=== PATIENT | male | born 1970 | race Caucasian/White ===

== ENCOUNTER 2023-09-19 15:17 | Inpatient (IN) | payer SELFPAY ==
[~2023-09-19] VITALS: Ht 182.9 cm; Wt 95.8 kg
[2023-09-19] MEDS ORDERED: LR 1,000 ML IV ONE (16:30)
[2023-09-19 17:12] LABS: BASO # 0.1 K/mm3 (0.0-0.2); BASO % 0.9 % (0.0-2.0); EOS # 0.1 K/mm3 (0.0-0.7); EOS % 0.8 % (0.0-4.0); GRAN # 6.8 K/mm3 (1.4-6.5); GRAN % 80.7 % (42.2-75.2); HEMATOCRIT 43.4 % (42.0-52.0); HEMOGLOBIN 14.9 g/dl (13.5-18.0); LYMPH # 1.1 K/mm3 (1.2-3.4); MEAN CELL VOLUME 91 fl (80.0-100.0); MEAN CORPUSCULAR HEMOGLOBIN 31 pg (27-31); MEAN CORPUSCULAR HGB CONC 34 g/dl (33.0-37.0); MEAN PLATELET VOLUME 10.2 fl (7.4-10.4); MONO # 0.4 K/mm3 (0.1-0.6); MONO % 4.4 % (1.7-9.3); PLATELET COUNT 227 K/mm3 (130-400); RED BLOOD COUNT 4.79 M/mm3 (4.20-5.60); REDCELL DISTRIBUTION WIDTH-CV 12.5 % (11.5-14.5)
[2023-09-19 17:27] LABS: ALBUMIN 4.2 g/dL (3.5-5.0); BILIRUBIN,TOTAL 1.1 mg/dL (0.2-1.2); CALCIUM 9.8 mg/dL (8.4-10.2); CREATININE, serum 0.96 mg/dL (0.72-1.25); TOTAL PROTEIN 7.6 g/dl (6.2-8.1)
[2023-09-19] MEDS ORDERED: Succinylcholine PF 200 MG/10 ML SYRINGE IV ONE (17:52)
[2023-09-19] MEDS ORDERED: Lidocaine PF 2% (20 MG/ML) 5 ML VIAL ONE (17:53)
[2023-09-19] MEDS ORDERED: fentaNYL 50 MCG/ML 2 ML VIAL ONE (17:53)
[2023-09-19] MEDS ORDERED: Ondansetron 4 MG/2 ML VIAL IV PRN (18:00)
[2023-09-19] MEDS ORDERED: fentaNYL 50 MCG/ML 1 ML SYRINGE/VIAL [PACU/SDC ONLY] IV PRN (18:00)
[2023-09-19] MEDS ORDERED: LR 1,000 ML IV SCH (18:00)
[2023-09-19] MEDS ORDERED: Meperidine 50 MG/ML 1 ML VIAL IV PRN (18:00)
[2023-09-19] MEDS ORDERED: dexAMETHasone 10 MG/ML VIAL ONE (18:40)
[2023-09-19] MEDS ORDERED: Ondansetron 4 MG/2 ML VIAL ONE (18:40)
[2023-09-19 19:50] VITALS: BP 148/90; PULSE 98; TEMP 97.9
--- NOTE | 2023-09-19 19:50 | NUR ---
Pt brought to surgical floor from PACU. Pt is awake, A&O x4. Oriented pt to room, call light, and bathroom. Admission intake and assessment completed. IV to Rt AC patent infusing LR with no complications. Pt reports no pain at this time. VSS with post op monitorting in place. Call light within reach.
[2023-09-19 20:05] VITALS: BP 138/88; PULSE 94; TEMP 97.9
[2023-09-19 20:20] VITALS: BP 140/88; PULSE 93
[2023-09-19 20:30] VITALS: BP 138/85; PULSE 98
--- NOTE | 2023-09-19 20:58 | NUR ---
Pt requested to be discharged at this time. This nurse called Dr. Padilla and spoke with Keny from OR. This nurse informed Keny who was speaking for Dr. Padilla about pt request and Keny informed this nurse that Dr. Padilla will finalize discharge orders when able. This nurse informed pt. VSS at this time. Pt has no other request. Call light within reach.
--- NOTE | 2023-09-19 21:44 | NUR ---
Discharge instructions provided to patient and pt verbalized understanding. INT to Rt AC discontinued with tip intact, pt tolerated well with no complaints. VSS. Pt is leaving facility with friend back to home.
== END 2023-09-19 21:44 | disposition home or self-care (01) | DRG 392 ==
LOC: COL.ER 15:17 → SURG 20:08
PROVIDERS: ADMIT Family Medicine
PROC: 0DC58ZZ Extirpation of Matter from Esophagus, Via Natural or Artificial Opening Endoscopic (ICD-10-PCS; principal; 2023-09-19)
DX: K22.2 Esophageal obstruction (principal); T18.128A Food in esophagus causing other injury, initial encounter; Z90.49 Acquired absence of other specified parts of digestive tract
CPT/HCPCS: J1100; J2405; J2704; J3010; J7120